=== PATIENT | female | born 1985 | race Caucasian/White ===

== ENCOUNTER 2017-03-11 14:17 | Emergency (ER) | payer OTHER ==
[~2017-03-11] VITALS: Ht 172.7 cm; Wt 85.0 kg
[2017-03-11 14:22] VITALS: BP 122/72; PULSE 85; RESP 15; TEMP 98.2; O2SAT 97
--- NOTE | 2017-03-11 14:50 | PD ---
HPI Chief Complaint: Injury Time Seen by Provider: 14:40 Travel History International Travel<30 days: No Contact w/Intl Traveler<30days: No Traveled to known affect area: No History of Present Illness HPI 31 year-old female presents to the emergency room for evaluation of right shoulder pain and swelling for the past 3 weeks. Patient states she was at work when she fell forward landing on bilateral elbows. Since then, she has had intermittent shoulder pain localized to acromioclavicular joint and worse with certain range of motion. States it feels as though someone is poking her with a hot knife. Patient also reports associated right shoulder edema but denies bruising. She has been taking ibuprofen and BC powders for pain. States ibuprofen does not help with BC powders relieve her pain temporarily. She denies paresthesias, elbow pain, hand pain, or any other injuries. PFSH Past Medical History Diminished Hearing: No Influenza Vaccination: No ?: Unknown : 2 Para: 2 Past Surgical History Section: Yes (X2) Gynecologic Surgery: Yes Other Surgery: Yes (RIGHT FOREARM ) Social History Alcohol Use: No Tobacco Use: Yes (1/2 PPD ) Substance Use: Yes (DILAUDID IV) Allergies-Medications (Allergen,Severity, Reaction): Coded Allergies: No Known Allergies (Unverified , 03/11/17) Reported Meds & Prescriptions Reported Meds & Active Scripts Active No Active Prescriptions or Reported Medications Review of Systems Except as stated in HPI: all other systems reviewed are Neg Physical Exam Narrative GENERAL: Well-nourished, well-developed female in no acute distress. Afebrile. Ambulatory. SKIN: Focused skin assessment warm/dry. No erythema or ecchymosis. HEAD: Normocephalic. EYES: No scleral icterus. No injection or drainage. NECK: Supple, trachea midline. No JVD or lymphadenopathy. CARDIOVASCULAR: Regular rate and rhythm without murmurs, gallops, or rubs. RESPIRATORY: Breath sounds equal bilaterally. No accessory muscle use. MUSCULOSKELETAL: No cyanosis. Slight edema of the right posterior shoulder. No bony tenderness to palpation of the humerus, scapula, or clavicle. 2+ radial pulse. Radial, ulnar, and median nerves intact. Full range motion of the elbow , wrist, and hand. Patient has pain with external and internal rotation and flexion, extension, or abduction greater than 90. Data Data Last Documented VS Vital Signs Date Time Temp Pulse Resp B/P Pulse Ox O2 Delivery O2 Flow Rate FiO2 03/11/17 14:22 98.2 85 15 122/72 97 Orders Shoulder, Complete (>2vws) (03/11/17 ) [facility] Medical Decision Making Medical Screen Exam Complete: Yes Emergency Medical Condition: Yes Medical Record Reviewed: Yes Differential Diagnosis Strain, sprain, dislocation, separation, fracture Narrative Course 31 -year-old female presents to the emergency room for evaluation of right shoulder pain for the past 3 weeks after trip and fall at work. Right upper extremity is neurovascularly intact with 2+ radial pulse and radial, ulnar, and median nerves intact. There is no bony tenderness palpation of the scapula, clavicle, or humerus. No obvious deformity. No obvious edema. No ecchymosis or erythema. X-ray is negative. Likely muscle strain or shoulder sprain. Patient discharged with instructions to follow-up with her worker's comp physician or return to the emergency room for worsening symptoms. She understands and agrees to plan. Diagnosis Primary Impression: Sprain of right shoulder Qualified Code: S43.401A - Sprain of right shoulder, unspecified shoulder sprain type, initial encounter Referrals: Primary Care Physician Patient Instructions: General Instructions, Shoulder Sprain (ED) Additional Instructions: Rest and drink plenty of fluids. Take ibuprofen with food as directed, as needed for pain. Apply ice to the affected area for 20 minutes at a time, as needed for pain and swelling. Follow-up with a primary care physician. Return to the emergency room for worsening symptoms. Scripts No Active Prescriptions or Reported Meds Disposition: 01 DISCHARGE HOME Condition: Stable Liana Arias Mar 11, 2017 14:50
--- NOTE | 2017-03-11 15:11 | RADRPT ---
EXAM DATE/TIME: 03/11/2017 14:59 [facility] COMPARISON: No previous studies available for comparison. INDICATIONS : Right shoulder pain after falling. MEDICAL HISTORY : None. SURGICAL HISTORY : None. ENCOUNTER: Initial ACUITY: 3 weeks PAIN SCORE: 8/10 LOCATION: Right lateral shoulder FINDINGS: Multiple view examination of the right shoulder demonstrates no evidence of fracture or dislocation. The glenohumeral and acromioclavicular joints are maintained. There is normal range of motion betwe en internal and external rotation. The visualized right upper ribs are intact. Bony mineralization is normal. CONCLUSION: No evidence of fracture or dislocation. Hernesto Marlow MD on March 11, 2017 at 15:09 Board Certified Radiologist. This report was verified electronically.
== END 2017-03-11 15:41 | disposition home or self-care (01) ==
LOC: PHEFT 14:17
DX: S43.401A Unspecified sprain of right shoulder joint, initial encounter (principal); W19.XXXA Unspecified fall, initial encounter; Y99.0 Civilian activity done for income or pay; F17.210 Nicotine dependence, cigarettes, uncomplicated
CPT/HCPCS: 73030; 99283

== ENCOUNTER → 2017-09-21 | Outpatient (CLI) | payer OTHER ==
[~2017-09-21] MED LIST: METR1TAB76 PO; PREN1CAP7 PO
== END ==
LOC: HPND 12:37
PROVIDERS: ATTEND Obstetrics & Gynecology
DX: O34.212 Maternal care for vertical scar from previous cesarean delivery (principal); O35.2XX0 Maternal care for (suspected) hereditary disease in fetus, not applicable or unspecified; Q68.8 Other specified congenital musculoskeletal deformities
CPT/HCPCS: 76811

== ENCOUNTER → 2017-10-19 | Outpatient (CLI) | payer OTHER | LOC: HPND 10:58 | PROVIDERS: ATTEND Obstetrics & Gynecology | DX: O34.212 Maternal care for vertical scar from previous cesarean delivery (principal); O35.2XX0 Maternal care for (suspected) hereditary disease in fetus, not applicable or unspecified; Q68.8 Other specified congenital musculoskeletal deformities; Z98.891 History of uterine scar from previous surgery | CPT/HCPCS: 76816 ==

== ENCOUNTER → 2017-11-17 | Outpatient (CLI) | payer OTHER | LOC: HPND 13:02 | PROVIDERS: ATTEND Obstetrics & Gynecology | DX: O36.63X0 Maternal care for excessive fetal growth, third trimester, not applicable or unspecified (principal); Q68.8 Other specified congenital musculoskeletal deformities | CPT/HCPCS: 76816 ==